=== PATIENT | female | born 1985 | race Caucasian/White ===

== ENCOUNTER 2020-11-11 09:41 | Emergency (ER) | payer OTHER ==
[~2020-11-11] VITALS: Ht 157.5 cm; Wt 97.5 kg
[2020-11-11] MEDS ORDERED: IBUPROFEN 600600 M1 PO (10:24)
[2020-11-11] MEDS ORDERED: TRAMADOL 50 MG50 MG PO (10:24)
[2020-11-11] MEDS ORDERED: CEPHALEXIN500 MG PO (10:24)
[2020-11-11 10:36] VITALS: BP 134/72
== END 2020-11-11 10:37 | disposition home or self-care (01) ==
LOC: M.ERS 09:41
DX: H92.03 Otalgia, bilateral (principal); Z88.1 Allergy status to other antibiotic agents; Z88.5 Allergy status to narcotic agent; Z88.8 Allergy status to other drugs, medicaments and biological substances